=== PATIENT | female | born 1995 | race Caucasian/White ===

== ENCOUNTER → 2022-03-24 12:52 | Outpatient (CLI) | payer BC, SELFPAY ==
--- NOTE | 2022-03-24 13:01 | US_ITS ---
FINAL REPORT CLINICAL HISTORY: ENLARGED THYROID GLAND FINDINGS: THYROID ULTRASOUND Sonographic images of the thyroid was obtained. The right lobe of the thyroid measures 4.65 x 1.77 x 1.55 cm. The left lobe of the thyroid measures 4.70 x 1.79 x 1.52 cm. The thyroid has a heterogeneous echotexture without a well-defined nodule. IMPRESSION: Enlarged heterogeneous thyroid consistent with goiter or thyroiditis. Reviewed, Interpreted and Dictated by Shaan Marshall III, MD Transcribed by Evi Andrews Authenticated and [facility]
== END ==
PROVIDERS: Visit Provider Physician Assistant
DX: E04.9 Nontoxic goiter, unspecified (principal)
CPT/HCPCS: 76536

== ENCOUNTER 2023-12-23 18:16 | Outpatient (CLI) | payer BC, SELFPAY | END 2023-12-23 23:59 | LOC: LAB.DROPOF 18:16 | PROVIDERS: PCP Student in an Organized Health Care Education/Training Program; Visit Provider Student in an Organized Health Care Education/Training Program | DX: J02.9 Acute pharyngitis, unspecified (principal) | CPT/HCPCS: 87070 ==

== ENCOUNTER 2024-01-27 15:00 | Outpatient (CLI) | payer BC, SELFPAY ==
[2024-01-27 16:02] LABS: Free T4 (Free Thyroxine) 0.64 ng/dl (0.78-2.19)
[2024-01-28 11:18] LABS: Thyroid Peroxidase Antibodies >600 IU/mL (0-34)
== END 2024-01-27 23:59 | disposition home or self-care (01) ==
LOC: LAB 15:02
PROVIDERS: PCP Physician Assistant; Visit Provider Physician Assistant
DX: E03.9 Hypothyroidism, unspecified (principal)
CPT/HCPCS: 36415; 84439; 84443; 86376

== ENCOUNTER 2024-05-07 14:53 | Outpatient (CLI) | payer BC, SELFPAY | END 2024-05-07 23:59 | disposition home or self-care (01) | LOC: LAB.DROPOF 05-08 15:28 | PROVIDERS: PCP Physician Assistant; Visit Provider Student in an Organized Health Care Education/Training Program | DX: J02.9 Acute pharyngitis, unspecified (principal) | CPT/HCPCS: 87070 ==